=== PATIENT | female | born 1960 | race Caucasian/White ===

== ENCOUNTER → 2023-07-26 15:26 | Outpatient (REF) | payer BC, SELFPAY | LOC: HWRAD 15:26 | PROVIDERS: ATTENDING PHYSICIAN Obstetrics & Gynecology; FAMILY PHYSICIAN Nurse Practitioner; REFERRING PHYSICIAN Nurse Practitioner Family | DX: Z12.31 Encounter for screening mammogram for malignant neoplasm of breast (principal); M81.0 Age-related osteoporosis without current pathological fracture | CPT/HCPCS: 77063; 77067; 77080; 77081 ==

== ENCOUNTER → 2023-09-15 06:32 | Day surgery (SDC) | payer BC, SELFPAY | LOC: GI 06:32 | PROVIDERS: ATTENDING PHYSICIAN Internal Medicine Gastroenterology; FAMILY PHYSICIAN Nurse Practitioner | DX: Z12.11 Encounter for screening for malignant neoplasm of colon (principal); D12.0 Benign neoplasm of cecum; K64.8 Other hemorrhoids; K31.7 Polyp of stomach and duodenum; K31.89 Other diseases of stomach and duodenum; R13.10 Dysphagia, unspecified; R12 Heartburn | CPT/HCPCS: 45385; 45381; 43239; 88305; 88342 ==

== ENCOUNTER → 2024-09-28 07:38 | Outpatient (REF) | payer BC, SELFPAY | LOC: HWWDC 07:38 | PROVIDERS: ATTENDING PHYSICIAN Obstetrics & Gynecology | DX: Z12.31 Encounter for screening mammogram for malignant neoplasm of breast (principal) | CPT/HCPCS: 77063; 77067 ==